=== PATIENT | female | born 1975 | race Caucasian/White ===

== ENCOUNTER 2019-06-09 19:46 | Emergency (ER) | payer MEDICAID, BC ==
[2019-06-09] MEDS ORDERED: ONDANSETRON HCL IV 4 MG/2 ML VIAL IVP ONE (19:57)
[2019-06-09] MEDS ORDERED: KETOROLAC 30 MG/ML VIAL IVP ONE (19:57)
[2019-06-09 19:59] LABS: URINE APPEARANCE CLEAR; URINE BILIRUBIN NEGATIVE (NEGATIVE); URINE BLOOD LARGE (NEGATIVE); URINE COLOR YELLOW; URINE GLUCOSE (UA) NEGATIVE (NEGATIVE); URINE KETONE NEGATIVE (NEGATIVE); URINE LEUKOCYTE ESTERASE SMALL (NEGATIVE); URINE NITRITE NEGATIVE (NEGATIVE); URINE UROBILINOGEN 0.2 E.U./dL (0.20 - 1.00)
[2019-06-09] MEDS ORDERED: 0.9 % SODIUM CHLORIDE 1000ML 1,000 ML IV SCH (20:00)
--- NOTE | 2019-06-09 20:01 | Emergency Department Record ---
History of Present Illness - General Chief complaint: Flank Pain Stated complaint: KIDNEY PAIN BOTH SIDES Time Seen by Provider: 06/09/19 19:48 Source: Patient Mode of Arrival: Ambulatory Limitations: No limitations - History of Present Illness Initial comments: 44 yo female presents to ED for evaluation of bilateral flank pain symptoms that began this morning. Patient reports that she believed she had a bladder infection 2 days ago, denies fevers, chills, or vomiting symptoms. Patient denies history of kidney stones. Patient reports taking Tylenol for her symptoms earlier this morning, denies health problems at her baseline other than asthma. MD Complaint: Other Onset/Timin -: Days(s) Radiation: L flank, R flank Severity: Moderate Quality: Aching Consistency: Constant Improves with: None Worsens with: None Associated Symptoms: Dysuria - Related Data Previous Rx's Medication Instructions Recorded Amoxicillin/Potassium Clav 1 tab PO BID #20 tablet 10/10/15 [Augmentin 875Mg/125Mg] Amoxicillin/Potassium Clav 1 tab PO TID #30 tablet 10/10/15 [Augmentin 875Mg/125Mg] Cephalexin [Keflex] 500 mg PO TID #21 cap 06/09/19 Allergies Allergy/AdvReac Type Severity Reaction Status Date / Time Sulfa (Sulfonamide Allergy Severe ANAPHYLAXIS Verified 10/10/15 17:30 Antibiotics) povidone-iodine Allergy Mild RASH Verified 10/10/15 17:30 [From Betadine] soap [From Betadine] Allergy Mild RASH Verified 10/10/15 17:30 hydrocodone AdvReac Intermediate VOMITING Verified 10/10/15 17:30 hydromorphone HCl AdvReac Intermediate VOMITING Verified 10/10/15 17:30 [From Dilaudid] Review of Systems Constitutional: Denies: Chills, Fever, Malaise, Night sweats Eyes: Denies: Eye discharge, Eye pain ENT: Denies: Congestion, Ear pain, Epistaxis Respiratory: Denies: Cough, Dyspnea Cardiovascular: Denies: Chest pain, Dyspnea on exertion Endocrine: Denies: Fatigue, Heat or cold intolerance Gastrointestinal: Reports: Nausea. Denies: Abdominal pain, Constipation, Vomiting Genitourinary: Reports: Dysuria. Denies: Incontinence, Retention Musculoskeletal: Reports: Back pain. Denies: Arthralgia Skin: Denies: Bruising, Change in color Neurological: Denies: Abnormal gait, Confusion, Headache, Seizure Psychiatric: Denies: Anxiety Hematological/Lymphatic: Denies: Anemia, Blood Clots Past Medical History - SOCIAL HISTORY Smoking Status: Never smoker - RESPIRATORY Hx Respiratory Disorders: Yes Hx Asthma: Yes - CARDIOVASCULAR Hx Cardio Disorders: No - NEURO Hx Neuro Disorders: Yes Hx Headaches: Yes (hx of migraines) - GI Hx GI Disorders: No - Hx Genitourinary Disorders: No Comment:: endometriosis. - ENDOCRINE Hx Endocrine Disorders: No - MUSCULOSKELETAL Hx Musculoskeletal Disorders: No - PSYCH Hx Psych Problems: No - HEMATOLOGY/ONCOLOGY Hx Hematology/Oncology Disorders: No Family Medical History Hx Cancer: Father Hx Heart Disease: Mother Physical Exam - General General Appearance: Alert, Oriented x3, Cooperative, Moderate distress (Appears uncomfortable on examination) Limitations: No limitations - Head Head exam: Atraumatic, Normocephalic, Normal inspection Head exam detail: negative: Abrasion, Contusion, Harrison's sign, General tenderness, Hematoma, Laceration - Eye Eye exam: Normal appearance. negative: Conjunctival injection, Periorbital swelling, Periorbital tenderness, Scleral icterus - ENT Ear exam: negative: Auricular hematoma, Auricular trauma Nasal Exam: negative: Active bleeding, Discharge, Dried blood, Foreign body Mouth exam: negative: Drooling, Laceration, Muffled voice, Tongue elevation - Neck Neck exam: Normal inspection. negative: Meningismus, Tenderness - Respiratory Respiratory exam: Normal lung sounds bilaterally. negative: Rales, Respiratory distress, Rhonchi, Stridor - Cardiovascular Cardiovascular Exam: Regular rate, Normal rhythm, Normal heart sounds - GI/Abdominal GI/Abdominal exam: Soft. negative: Rebound, Rigid, Tenderness - Rectal Rectal exam: Deferred - exam: Deferred - Extremities Extremities exam: Normal inspection. negative: Pedal edema, Tenderness - Back Back exam: Reports: CVA tenderness (R), CVA tenderness (L) - Neurological Neurological exam: Alert, Normal gait, Oriented X3 - Psychiatric Psychiatric exam: Normal affect, Normal mood - Skin Skin exam: Normal color. negative: Abrasion Type of lesion: negative: abrasion Course Vital Signs 06/09/19 19:51 Temperature 98.3 F Pulse Rate [ 89 Left] Respiratory 16 Rate Blood Pressure 117/70 [Left Arm] Pulse Ox 100 - Reevaluation(s) Reevaluation #1: 06/09/19 20:14 Laboratory studies were reviewed and are grossly unremarkable for an acute process except for the following: WBC 15 UA: RBCs 36-50 WBCs: 16-20 Epis: 0-2 1+ Bacteria Rocephin ordered to infuse for treatment of pyelonephritis, given bilateral symptoms and no previous history of kidney stones, symptoms do not appear c/w infected ureteral calculus. Patient is in agreement with NOT performing CT imaging following our discussion and MDM. 06/09/19 20:44 Patient was updated on all results, will prescribe Keflex as directed for outpatient treatment of her pyelonephritis. Patient's pain symptoms are significantly improved from 06/06 to 12/07. Patient appears stable for discharge at this time. Medical Decision Making - Lab Data Result diagrams: 06/09/19 20:00 06/09/19 20:00 Disposition Disposition: Discharge Clinical Impression: Pyelonephritis Disposition: Home, Self-Care Condition: (2) Stable Instructions: Kidney Infection (ED) Additional Instructions: Return to ED if your symptoms worsen or if you have any concerns. Keflex as directed. Follow-up with your family doctor in 3-5 days as directed. Prescriptions: Cephalexin [Keflex] 500 mg PO TID #21 cap Forms: Patient Portal Access Time of Disposition: 20:27 Quality - Quality Measures Quality Measures: N/A - Blood Pressure Screening Does Patient Have Any of the Following: No Blood Pressure Classification: Normal BP Reading Systolic Measurement: 117 Diastolic Measurement: 70 Screening for High Blood Pressure: < Normal BP, F/U Not Required > [G8783]
[2019-06-09 20:03] LABS: URINE BACTERIA 1+; URINE EPITHELIAL CELLS 0 - 2 (FEW); URINE RBC 36 - 50 (NONE SEEN); URINE WBC 16 - 20 (0-2/hpf)
[2019-06-09 20:10] LABS: ABSOLUTE NEUTROPHIL COUNT 10.35; BASO % 0.3 % (0-6); EOS % 2.1 % (0-6); GRAN % 68.9 % (47-80); HEMATOCRIT 42.5 % (35.0-47.0); HEMOGLOBIN 14.1 gm/dl (11.6-16.0); LYMPH % 22.3 % (16-45); MEAN CELL VOLUME 96.8 fl (81-97); MEAN CORPUSCULAR HEMOGLOBIN 32.1 pg (27-33); MEAN CORPUSCULAR HGB CONC 33.2 g/dl (32-36); MEAN PLATELET VOLUME 9.8 fl (7.4-10.4); MONO % 6.4 % (0-9); PLATELET COUNT 294 K/uL (130-400); RED BLOOD COUNT 4.39 M/uL (3.80-5.40)
[2019-06-09 20:22] LABS: BLOOD UREA NITROGEN 17 mg/dL (6-20); CREATININE 0.8 mg/dL (0.5-0.9); EST GLOMERULAR FILTRATION RATE > 60 mL/min
[2019-06-09 20:25] LABS: GLUCOSE,RANDOM 123 mg/dL (74-109)
[2019-06-09 20:28] LABS: ALB/GLOB RATIO 1.4 (1.1-1.8); ALBUMIN 4.1 g/dL (4.0-5.0); ALKALINE PHOSPHATASE 71 U/L (35-104); ALT/SGPT 11 U/L (<33); AST/SGOT 15 U/L (10.0-35.0)
[2019-06-09] MEDS ORDERED: CEFTRIAXONE 1GM/50ML BAG IVPB SCH (20:30)
== END 2019-06-09 20:58 | disposition home or self-care (01) ==
LOC: ER 19:46
DX: N10 Acute pyelonephritis (principal); R10.84 Generalized abdominal pain; R30.0 Dysuria
CPT/HCPCS: 99284 ×2; 96374; 96375; 85025; 80053; 81001; J1885; J2405; J0696; J7030